=== PATIENT | male | born 1965 | race African-American/Black ===

== ENCOUNTER 2021-05-19 00:30 | Inpatient (IN) | payer MEDICAID ==
[~2021-05-19] VITALS: Ht 200.7 cm; Wt 130.2 kg
[2021-05-19 01:39] LABS: BASOPHILS % 0.6 % (0.0-2.0); EOSINOPHILS % 1.3 % (0.0-5.0); HEMATOCRIT. 38.2 % (42.0-52.0); HEMOGLOBIN. 12.8 g/dL (14.0-18.0); MEAN CORPUSCULAR HEMOGLOBIN 25.8 pg (28.0-32.0); MEAN PLATELET VOLUME 9.1 fl (7.4-10.4); MONOCYTES % 14.5 % (2.0-8.0); NEUTROPHILS % 65.6 % (40.0-76.0); PLATELET 171 x1000/uL (130-400); RED BLOOD CELL COUNT 4.96 mill/uL (4.7-6.1); RED CELL DISTRIBUTION WIDTH 16.1 % (11.6-14.6)
[2021-05-19 01:45] LABS: CHLORIDE 104 mEq/L (98-107)
[2021-05-19] MEDS ORDERED: LABETALOL HCL VIAL 20 MG/4 ML VIAL IV ONE (02:30)
[2021-05-19] MEDS ORDERED: ONDANSETRON HCL 4MG/2ML INJ IV ONE (04:00)
[2021-05-19] MEDS ORDERED: ENOXAPARIN 40MG/0.4ML SYR SUBCUT SCH (04:30)
[2021-05-19] MEDS ORDERED: HYDROCODONE/ACETAMINOPHEN 5/325MG TABLET PO PRN (04:30)
[2021-05-19] MEDS ORDERED: CLONIDINE 0.1MG TABLET PO PRN (04:30)
[2021-05-19] MEDS ORDERED: ACETAMINOPHEN 325MG TABLET PO PRN (04:30)
[2021-05-19] MEDS ORDERED: MAGNESIUM/ALUMINUM HYDROXIDE/SIMETHICONE 30ML UDC PO PRN (04:30)
[2021-05-19] MEDS ORDERED: MORPHINE SULFATE 2 MG/ML CPJ (NOT FOR IM USE) IV PRN (04:30)
[2021-05-19] MEDS: LISINOPRIL 40MG TABLET PO SCH (05:00)
[2021-05-19] MEDS ORDERED: NALOXONE HCL 0.4 MG/ML 1ML VIAL IV PRN (05:15)
[2021-05-19] MEDS ORDERED: IOHEXOL-350 100 ML BOTTLE ONE (05:46)
[2021-05-19] MEDS: FUROSEMIDE 40MG/4ML VIAL IV SCH (08:38)
[2021-05-19] MEDS: ENOXAPARIN 40MG/0.4ML SYR SUBCUT SCH ×2 (08:38→21:00)
[2021-05-19] MEDS: ASPIRIN 81MG EC TABLET PO SCH (08:38)
[2021-05-19] MEDS: AMLODIPINE 10MG TABLET PO SCH (08:38)
[2021-05-19 14:41] LABS: *AMPHETAMINES SCREEN URINE NEGATIVE (NEGATIVE); *BARBITURATES SCREEN URINE NEGATIVE (NEGATIVE); *BENZODIAZEPINES SCREEN URINE NEGATIVE (NEGATIVE); *COCAINE SCREEN URINE NEGATIVE (NEGATIVE); CANNABINOID URINE SCREEN NEGATIVE (NEGATIVE); METHADONE URINE SCREEN NEGATIVE (NEGATIVE); OPIATES URINE SCREEN NEGATIVE (NEGATIVE); PHENCYCLIDINE URINE SCREEN NEGATIVE (NEGATIVE)
[2021-05-19] MEDS: HYDROCHLOROTHIAZIDE 25MG TABLET PO SCH (14:46)
[2021-05-19] MEDS: HYDRALAZINE HCL 100MG TABLET PO SCH ×2 (14:46→22:16)
[2021-05-19] MEDS: ONDANSETRON HCL 4MG/2ML INJ IV PRN (19:02)
[2021-05-19] MEDS: METOPROLOL TARTRATE 100MG TABLET PO SCH (21:00)
[2021-05-19 23:20] VITALS: BP 126/84
[2021-05-19 23:30] VITALS: BP 126/84
[2021-05-20 04:30] VITALS: BP 125/82
[2021-05-20] MEDS: HYDRALAZINE HCL 100MG TABLET PO SCH ×3 (06:27→22:03)
[2021-05-20 07:52] VITALS: BP 122/87
[2021-05-20] MEDS: ASPIRIN 81MG EC TABLET PO SCH (08:05)
[2021-05-20] MEDS: FUROSEMIDE 40MG/4ML VIAL IV SCH (08:05)
[2021-05-20] MEDS: ONDANSETRON HCL 4MG/2ML INJ IV PRN (08:05)
[2021-05-20] MEDS: HYDROCHLOROTHIAZIDE 25MG TABLET PO SCH (08:05)
[2021-05-20] MEDS: LISINOPRIL 40MG TABLET PO SCH (08:06)
[2021-05-20] MEDS: ENOXAPARIN 40MG/0.4ML SYR SUBCUT SCH (08:06)
[2021-05-20] MEDS: AMLODIPINE 10MG TABLET PO SCH (08:06)
[2021-05-20] MEDS: METOPROLOL TARTRATE 100MG TABLET PO SCH ×2 (08:06→22:03)
[2021-05-20 10:40] LABS: BASOPHILS % 0.3 % (0.0-2.0); EOSINOPHILS % 1.8 % (0.0-5.0); HEMATOCRIT. 43.4 % (42.0-52.0); HEMOGLOBIN. 14.2 g/dL (14.0-18.0); LYMPHOCYTES % 12.1 % (20.0-50.0); MEAN CORPUSCULAR HEMOGLOBIN 25.7 pg (28.0-32.0); MEAN CORPUSCULAR VOLUME 78.6 fL (80.0-94.0); MEAN PLATELET VOLUME 9.6 fl (7.4-10.4); MONOCYTES % 14.4 % (2.0-8.0); NEUTROPHILS % 71.4 % (40.0-76.0); PLATELET 204 x1000/uL (130-400); RED BLOOD CELL COUNT 5.53 mill/uL (4.7-6.1); RED CELL DISTRIBUTION WIDTH 16.2 % (11.6-14.6)
[2021-05-20 10:42] LABS: CHLORIDE 100 mEq/L (98-107)
[2021-05-20 10:49] LABS: LDL CHOLESTEROL 84 mg/dL (5-100)
[2021-05-20 10:51] LABS: HDL CHOLESTEROL 27 mg/dL (40-59)
[2021-05-20 12:04] VITALS: BP 108/82
[2021-05-20 16:01] VITALS: BP 129/78
[2021-05-20 20:00] VITALS: BP 129/89
[2021-05-20] MEDS: ENOXAPARIN 30MG/0.3ML SYR SUBCUT SCH (22:03)
[2021-05-20 23:46] VITALS: BP 127/87
[2021-05-21 04:00] VITALS: BP 123/88
[2021-05-21] MEDS: HYDRALAZINE HCL 100MG TABLET PO SCH (07:02)
[2021-05-21 08:00] VITALS: BP 131/91
[2021-05-21] MEDS: AMLODIPINE 10MG TABLET PO SCH (08:58)
[2021-05-21] MEDS: HYDROCHLOROTHIAZIDE 25MG TABLET PO SCH (08:58)
[2021-05-21] MEDS: ASPIRIN 81MG EC TABLET PO SCH (08:58)
[2021-05-21] MEDS: FUROSEMIDE 40MG/4ML VIAL IV SCH (08:58)
[2021-05-21] MEDS: ENOXAPARIN 30MG/0.3ML SYR SUBCUT SCH (08:58)
[2021-05-21] MEDS: METOPROLOL TARTRATE 100MG TABLET PO SCH (08:58)
[2021-05-21] MEDS: LISINOPRIL 40MG TABLET PO SCH (09:03)
[2021-05-21 10:49] VITALS: BP 131/91
== END 2021-05-21 11:30 | disposition home or self-care (01) | DRG 190 ==
LOC: ER 00:45 → 8WST 02:33 → ENRESERV 21:41
PROVIDERS: ADMIT Hospitalist; ATTEND Hospitalist
DX: I21.4 Non-ST elevation (NSTEMI) myocardial infarction (principal); I50.33 Acute on chronic diastolic (congestive) heart failure; E43 Unspecified severe protein-calorie malnutrition; I11.0 Hypertensive heart disease with heart failure; E78.00 Pure hypercholesterolemia, unspecified; I16.0 Hypertensive urgency; Z20.822 Contact with and (suspected) exposure to COVID-19; I25.10 Atherosclerotic heart disease of native coronary artery without angina pectoris; Z91.19 Patient's noncompliance with other medical treatment and regimen; Z68.32 Body mass index [BMI] 32.0-32.9, adult; Z79.899 Other long term (current) drug therapy
CPT/HCPCS: 36415; 71045; 71275; 80053; 80061; 80305; 80320; 83880; 84484; 85025; 85379; 87426; 93005; 93306; 93970; 99285; J1650; J1940; J2405; J3490; Q9967; G0480

== ENCOUNTER 2022-10-24 19:40 | Inpatient (IN) | payer MEDICAID ==
[~2022-10-24] VITALS: Ht 200.7 cm; Wt 123.4 kg
[2022-10-24] MEDS ORDERED: ACETAMINOPHEN 325MG TABLET PO ONE (21:45)
[2022-10-24] MEDS ORDERED: NITROGLYCERIN 0.2MG/HR PATCH TOP ONE (21:45)
[2022-10-24 22:34] LABS: BASOPHILS % 0.3 % (0.0-2.0); EOSINOPHILS % 1.7 % (0.0-5.0); HEMATOCRIT. 43.6 % (42.0-52.0); HEMOGLOBIN. 14.5 g/dL (14.0-18.0); LYMPHOCYTES % 12.5 % (20.0-50.0); MEAN CORPUSCULAR HEMOGLOBIN 25.9 pg (28.0-32.0); MEAN CORPUSCULAR VOLUME 77.8 fL (80.0-94.0); MEAN PLATELET VOLUME 10.5 fl (7.4-10.4); MONOCYTES % 13.1 % (2.0-8.0); NEUTROPHILS % 72.4 % (40.0-76.0); PLATELET 115 x1000/uL (130-400); RED CELL DISTRIBUTION WIDTH 16.7 % (11.6-14.6)
[2022-10-24] MEDS: FUROSEMIDE 40MG/4ML VIAL IVP SCH (22:37)
[2022-10-24 22:42] LABS: CHLORIDE 111 mEq/L (98-107)
[2022-10-24 23:59] LABS: CLARITY URINE CLEAR (CLEAR); COLOR URINE YELLOW (YELLOW); KETONES URINE NEGATIVE (NEGATIVE); LEUKOCYTE ESTERASE URINE NEGATIVE (NEGATIVE); NITRITE URINE NEGATIVE (NEGATIVE); OCCULT BLOOD URINE NEGATIVE (NEGATIVE); PH URINE 7.5 (4.5-8.0); PROTEIN URINE NEGATIVE (NEGATIVE); UROBILINOGEN URINE 0.2 E.U./dL (0.2-1.0)
[2022-10-25 00:18] LABS: *AMPHETAMINES SCREEN URINE NEGATIVE (NEGATIVE); *BARBITURATES SCREEN URINE NEGATIVE (NEGATIVE); *BENZODIAZEPINES SCREEN URINE NEGATIVE (NEGATIVE); *COCAINE SCREEN URINE NEGATIVE (NEGATIVE); CANNABINOID URINE SCREEN PRESUMTIVE POSITIVE (NEGATIVE); METHADONE URINE SCREEN NEGATIVE (NEGATIVE); OPIATES URINE SCREEN NEGATIVE (NEGATIVE); PHENCYCLIDINE URINE SCREEN NEGATIVE (NEGATIVE)
[2022-10-25] MEDS ORDERED: ASPIRIN 325MG EC TABLET PO ONE (01:45)
[2022-10-25] MEDS ORDERED: HYDRALAZINE 20MG/ML VIAL IV ONE (01:45)
[2022-10-25] MEDS ORDERED: CLONIDINE 0.1MG TABLET PO ONE (02:00)
[2022-10-25] MEDS ORDERED: IPRATROPIUM/ALBUTEROL 0.5-3(2.5)MG/3ML NEB HHN PRN (03:30)
[2022-10-25] MEDS ORDERED: DOCUSATE SODIUM 100MG CAPSULE PO PRN (03:30)
[2022-10-25] MEDS ORDERED: GUAIFENESIN 200MG/10ML SUGAR FREE UDC PO PRN (03:30)
[2022-10-25] MEDS ORDERED: HYDROCODONE/ACETAMINOPHEN 5/325MG TABLET PO PRN (03:30)
[2022-10-25] MEDS ORDERED: ACETAMINOPHEN 325MG TABLET PO PRN ×2 (03:30)
[2022-10-25] MEDS ORDERED: ONDANSETRON HCL 4MG/2ML INJ IV PRN (03:30)
[2022-10-25] MEDS ORDERED: MAGNESIUM/ALUMINUM HYDROXIDE/SIMETHICONE 30ML UDC PO PRN (03:30)
[2022-10-25] MEDS ORDERED: CLONIDINE 0.1MG TABLET PO NR (04:30)
[2022-10-25] MEDS ORDERED: FUROSEMIDE 40MG/4ML VIAL IV SCH (09:00)
[2022-10-25] MEDS ORDERED: AMLODIPINE 5MG TABLET PO SCH (09:00)
[2022-10-25] MEDS: PANTOPRAZOLE SODIUM 40 MG/VIAL IV SCH (10:22)
[2022-10-25] MEDS: ENOXAPARIN 30MG/0.3ML SYR SUBCUT SCH ×2 (10:24→21:29)
[2022-10-25] MEDS: CLONIDINE 0.1MG TABLET PO PRN (11:19)
[2022-10-25 12:00] VITALS: BP 171/116; PULSE 66; RESP 18; TEMP 98.5
[2022-10-25 12:49] VITALS: BP 180/124; PULSE 81; RESP 17; TEMP 98.7
[2022-10-25] MEDS ORDERED: HYDR100T26 PO (13:55)
[2022-10-25] MEDS ORDERED: AMLO10TA80 PO (13:55)
[2022-10-25] MEDS ORDERED: METO100T16 PO (13:55)
[2022-10-25] MEDS ORDERED: HYDR25TA PO (13:55)
[2022-10-25] MEDS ORDERED: LISI40TA13 PO (13:55)
[2022-10-25] MEDS ORDERED: FURO-151 PO (13:55)
[2022-10-25] MEDS ORDERED: AMLODIPINE 5MG TABLET PO NR (14:00)
[2022-10-25] MEDS ORDERED: HYDRALAZINE HCL 25MG TABLET PO PRN (14:00)
[2022-10-25] MEDS ORDERED: METOPROLOL TARTRATE 50MG TABLET PO SCH (14:00)
[2022-10-25 16:00] VITALS: BP 156/106; PULSE 66; RESP 19; TEMP 98.4
[2022-10-25 16:49] LABS: CREATINE KINASE 487 IU/L (39-308); CREATINE KINASE MB FRACTION 3.2 ng/mL (0.5-3.6)
[2022-10-25] MEDS ORDERED: NALOXONE HCL 0.4MG/ML VIAL IV PRN (17:00)
[2022-10-25 20:00] VITALS: BP 156/95; PULSE 68; RESP 25; TEMP 98.2
[2022-10-25] MEDS: METOPROLOL TARTRATE 50MG TABLET PO SCH (21:28)
[2022-10-25] MEDS: LOSARTAN POTASSIUM 50 MG TABLET PO SCH (21:28)
[2022-10-25 23:37] LABS: CREATINE KINASE MB FRACTION 2.4 ng/mL (0.5-3.6)
[2022-10-26] VITALS (7 sets, daily range): BP systolic 137–157; BP diastolic 87–113; PULSE 62–75; RESP 11–23; TEMP 97.6–99.2
[2022-10-26 06:43] LABS: BASOPHILS % 0.5 % (0.0-2.0); EOSINOPHILS % 2.3 % (0.0-5.0); HEMOGLOBIN. 15.2 g/dL (14.0-18.0); LYMPHOCYTES % 20.9 % (20.0-50.0); MEAN CORPUSCULAR VOLUME 78.5 fL (80.0-94.0); MEAN PLATELET VOLUME 10.5 fl (7.4-10.4); NEUTROPHILS % 62.3 % (40.0-76.0); PLATELET 137 x1000/uL (130-400); RED BLOOD CELL COUNT 5.86 mill/uL (4.7-6.1); RED CELL DISTRIBUTION WIDTH 16.6 % (11.6-14.6)
[2022-10-26 07:02] LABS: CHLORIDE 100 mEq/L (98-107); CREATINE KINASE 339 IU/L (39-308); CREATINE KINASE MB FRACTION 2.6 ng/mL (0.5-3.6); HDL CHOLESTEROL 46 mg/dL (40-59); LDL CHOLESTEROL 84 mg/dL (5-100); T4 FREE 0.99 ng/dL (0.76-1.46)
[2022-10-26] MEDS: FUROSEMIDE 40MG/4ML VIAL IVP SCH ×2 (08:28→09:00)
[2022-10-26] MEDS: PANTOPRAZOLE SODIUM 40 MG/VIAL IV SCH (08:28)
[2022-10-26] MEDS: ENOXAPARIN 40MG/0.4ML SYR SUBCUT SCH (08:29)
[2022-10-26] MEDS: AMLODIPINE 10MG TABLET PO SCH (08:29)
[2022-10-26] MEDS: METOPROLOL TARTRATE 50MG TABLET PO SCH ×2 (08:29→21:21)
[2022-10-26] MEDS ORDERED: REGADENOSON 0.4 MG/5 ML IV SCH (08:30)
[2022-10-26] MEDS: CLONIDINE 0.1MG TABLET PO PRN (16:25)
[2022-10-26] MEDS: SODIUM CHLORIDE 0.9% 1,000 ML IV SCH ×2 (16:27→21:00)
[2022-10-26] MEDS: LOSARTAN POTASSIUM 50 MG TABLET PO SCH (21:21)
[2022-10-27] VITALS: BP 144/97; PULSE 61; RESP 20; TEMP 98.4
[2022-10-27 04:00] VITALS: BP 161/103; PULSE 62; RESP 19; TEMP 98.5
[2022-10-27] MEDS: SODIUM CHLORIDE 0.9% 1,000 ML IV SCH (06:23)
[2022-10-27 07:23] LABS: HEMATOCRIT. 45.6 % (42.0-52.0); HEMOGLOBIN. 15.3 g/dL (14.0-18.0); MEAN CORPUSCULAR HEMOGLOBIN 26.2 pg (28.0-32.0); MEAN CORPUSCULAR VOLUME 78.2 fL (80.0-94.0); MEAN PLATELET VOLUME 10.5 fl (7.4-10.4); PLATELET 133 x1000/uL (130-400); RED BLOOD CELL COUNT 5.83 mill/uL (4.7-6.1); RED CELL DISTRIBUTION WIDTH 16.2 % (11.6-14.6)
[2022-10-27 07:52] LABS: CHLORIDE 106 mEq/L (98-107)
[2022-10-27 08:05] VITALS: BP 159/101; PULSE 72; RESP 20
[2022-10-27] MEDS: METOPROLOL TARTRATE 50MG TABLET PO SCH (08:26)
[2022-10-27] MEDS: AMLODIPINE 10MG TABLET PO SCH (08:27)
[2022-10-27] MEDS: FUROSEMIDE 40MG/4ML VIAL IVP SCH (08:27)
[2022-10-27] MEDS: ENOXAPARIN 40MG/0.4ML SYR SUBCUT SCH (08:28)
[2022-10-27] MEDS ORDERED: FAMOTIDINE 20MG/2ML VIAL IV SCH (09:00)
[2022-10-27] MEDS ORDERED: LOSARTAN POTASSIUM 50 MG TABLET PO SCH (09:30)
[2022-10-27] MEDS ORDERED: FURO-151 PO (11:38)
[2022-10-27] MEDS ORDERED: AMLO10TA80 PO (11:38)
[2022-10-27] MEDS ORDERED: SPIR25TA6 MT (11:38)
[2022-10-27] MEDS ORDERED: METO-539 PO (11:38)
[2022-10-27] MEDS ORDERED: LOSA50TA41 PO (11:38)
[2022-10-27 12:06] VITALS: BP 159/101; PULSE 73; TEMP 98.5; O2SAT 100
[2022-10-28 04:15] LABS: PLATELET ESTIMATE NORMAL
== END 2022-10-27 13:45 | disposition home or self-care (01) | DRG 199 ==
LOC: ER 19:40 → 3WST 10-25 01:43 → EDBEDREQDT 10-25 01:57 → EDBEDREQTM 10-25 01:57 → EDBEDREQ 10-25 01:57 → SUPCPDRO 10-25 07:06
PROVIDERS: ADMIT Internal Medicine; ATTEND Internal Medicine
DX: I16.0 Hypertensive urgency (principal); I50.33 Acute on chronic diastolic (congestive) heart failure; D69.6 Thrombocytopenia, unspecified; I42.9 Cardiomyopathy, unspecified; E46 Unspecified protein-calorie malnutrition; I11.0 Hypertensive heart disease with heart failure; E78.00 Pure hypercholesterolemia, unspecified; R74.01 Elevation of levels of liver transaminase levels; Z68.31 Body mass index [BMI] 31.0-31.9, adult; Z79.899 Other long term (current) drug therapy; Z87.891 Personal history of nicotine dependence; Z91.199 Patient's noncompliance with other medical treatment and regimen due to unspecified reason
CPT/HCPCS: 36415; 71045; 78452; 80048; 80053; 80061; 80305; 81003; 82550; 82553; 83880; 84439; 84443; 84484; 85025; 85379; 87426; 93005; 93306; 93970; 99285; A9500; C9113; C9803; J0360; J1650; J1940; J2405; J2785; J3490; J7030